=== PATIENT | female | born 2005 | race Caucasian/White ===

== ENCOUNTER 2024-02-11 19:59 | Emergency (ER) | payer OTHER ==
[~2024-02-11] VITALS: Ht 154.9 cm; Wt 80.1 kg
[2024-02-11] MEDS ORDERED: CYCL5TAB PO (23:05)
[2024-02-11] MEDS ORDERED: NAPR-837 PO (23:05)
[2024-02-11] MEDS: KETOROLAC 60MG 2ML VIAL IM ONE (23:16)
[2024-02-12 00:18] VITALS: BP 134/84; TEMP 97.5; O2SAT 100
== END 2024-02-12 00:19 | disposition home or self-care (01) ==
LOC: M ED 19:59
DX: S46.812A Strain of other muscles, fascia and tendons at shoulder and upper arm level, left arm, initial encounter (principal); V49.10XA Passenger injured in collision with unspecified motor vehicles in nontraffic accident, initial encounter; Z88.1 Allergy status to other antibiotic agents; Z79.1 Long term (current) use of non-steroidal anti-inflammatories (NSAID); Z79.899 Other long term (current) drug therapy; Y92.410 Unspecified street and highway as the place of occurrence of the external cause; Y93.89 Activity, other specified; Y99.9 Unspecified external cause status
CPT/HCPCS: 96372; 99283; J1885